=== PATIENT | female | born 1975 | race Caucasian/White ===

== ENCOUNTER 2018-07-01 15:39 | Outpatient (RCR) | payer OTHER ==
[~2018-07-01 15:39] MED LIST: ACHD5005 PO; FRS325T PO; IBP600T1 PO; METF500T8 PO; MTF500T PO; PREN-93 PO
== END 2018-08-04 | disposition home or self-care (01) ==
LOC: ONC 15:39
PROVIDERS: ATTEND Radiology Radiation Oncology
DX: Z51.0 Encounter for antineoplastic radiation therapy (principal); C50.212 Malignant neoplasm of upper-inner quadrant of left female breast; C77.3 Secondary and unspecified malignant neoplasm of axilla and upper limb lymph nodes; Z17.0 Estrogen receptor positive status [ER+]
CPT/HCPCS: 77290; 77295; 77300; 77332; 77334; 77336; 77417; 77470; 99204

== ENCOUNTER → 2018-07-27 | Outpatient (CLI) | payer OTHER ==
--- NOTE | 2018-07-27 15:13 | Diagnostic Imaging Report ---
EXAMINATION: Pelvic ultrasound. INDICATION: Gene mutation. FINDINGS: There are no previous pelvic ultrasound examinations available for comparison. The uterus is nongravid and not enlarged measuring 6.6 x 5.3 x 3.8 cm. There is no focal mass involving the uterus to suggest a fibroid. The endometrial lining is thickened measuring 9 mm (normal 5 mm or less). This finding is nonspecific. Correlation with the patient's menstrual cycle will be recommended. Both ovaries are identified. There is good blood flow to each ovary. There is a 1.4 x 1.3 x 1.5 cm hypoechoic area with a few internal echoes associated with the right ovary. I suspect that this is an ovarian cyst which has been complicated by infection and/or hemorrhage. There is no solid pelvic mass or free fluid collection noted. IMPRESSION: There is a 1.4 x 1.3 x 1.5 cm slightly complicated ovarian cyst arising from the right ovary. There is no acute pelvic abnormality noted otherwise. Dictated by: Dictated on workstation # [id number]
== END ==
LOC: RAD 12:31
PROVIDERS: ATTEND Student in an Organized Health Care Education/Training Program
DX: N83.201 Unspecified ovarian cyst, right side (principal); Z15.01 Genetic susceptibility to malignant neoplasm of breast
CPT/HCPCS: 76830; 76856

== ENCOUNTER → 2019-08-04 | Outpatient (CLI) | payer OTHER ==
--- NOTE | 2019-08-04 19:37 | Diagnostic Imaging Report ---
EXAMINATION: Magnetic resonance imaging of the left wrist without contrast DATE: August 04, 2019. COMPARISON: None. HISTORY: 44-year-old female, left wrist pain. Evaluation for ulnar neuritis. TECHNIQUE: Magnetic Resonance Imaging sequences were performed of the wrist without contrast. FINDINGS: TRIANGULAR FIBROCARTILAGE COMPLEX: The triangular fibrocartilage disc, dorsal radioulnar ligament, volar radioulnar ligament, ulnolunate ligament, ulnotriquetral ligament, extensor carpi ulnaris tendon and sheath, meniscal homologue are intact. INTRINSIC LIGAMENTS: The scapholunate and lunotriquetral ligaments are intact. JOINTS: The radiocarpal, intercarpal, and distal radioulnar joints are intact. There is no joint effusion. CARPAL TUNNEL: The flexor retinaculum is unremarkable. The flexor digitorum superficialis and profundus are intact. The median nerve is unremarkable. FLEXOR TENDONS: The flexor carpi ulnaris, flexor pollicis longus and carpi radialis are intact. EXTENSOR TENDONS: Radial side extensor tendons are intact including: extensor pollicis longus, extensor carpi radialis brevis, extensor carpi radialis longus, extensor pollicis brevis and abductor pollicis longus. The extensor carpi ulnaris, extensor digitorum, extensor digiti minimi and extensor indicis tendons are intact. BONE: The bones all have normal configuration. The bone marrow signal is within normal limits. Specifically, negative for fracture, osteomyelitis, osteonecrosis or marrow replacing process. BURSAE AND SOFT TISSUES: There is a multiloculated ganglion cyst adjacent to the dorsal intercarpal ligament, measuring 20 x 6 x 15 mm in size. Additional soft tissue assessment is unremarkable. There is no identified abnormal intramuscular signal. The ulnar nerve is not grossly enlarged or abnormal in signal. IMPRESSION: 1. No discretely identified tear of the triangular fibrocartilage complex or intrinsic wrist ligaments on non-arthrogram evaluation. 2. Large multiloculated ganglion cyst is centered adjacent to the dorsal intercarpal ligament, measuring 20 x 16 x 15 mm in size. 3. Intact tendons. 4. No acute fracture, bone contusion or evidence of osteonecrosis. 5. Unremarkable joint spaces. 6. No identified abnormal intramuscular signal or findings to specifically suggest ulnar neuritis based on imaging evaluation. Dictated by: Dictated on workstation # [id number]
== END ==
LOC: RAD 12:49
PROVIDERS: ATTEND Orthopaedic Surgery
DX: G56.22 Lesion of ulnar nerve, left upper limb (principal); M67.442 Ganglion, left hand
CPT/HCPCS: 73221